=== PATIENT | female | born 1995 | race Caucasian/White ===

== ENCOUNTER 2018-02-20 09:29 | Emergency (ER) | payer OTHER ==
[2018-02-20 10:00] LABS: URINE BLOOD (Dip) POC 3+ (NEGATIVE); URINE GLUCOSE (Dip) POC Negative (NEGATIVE); URINE KETONES (Dip) POC 4+ (NEGATIVE); URINE LEUKOCYTE EST (Dip) POC 3+ (NEGATIVE); URINE NITRITE (Dip) POC Positive (NEGATIVE); URINE TOTAL PROTEIN POC 3+ (NEGATIVE)
[2018-02-20 10:00] LABS: URINE PH (Dip) POC 5.5 (5.0-8.5)
[2018-02-20] MEDS: PHENAZOPYRIDINE 100 MG TAB PO (10:34)
[2018-02-20] MEDS: CEPHALEXIN 500 MG CAP PO (10:34)
== END 2018-02-20 10:48 | disposition home or self-care (01) ==
LOC: FTE 09:29
DX: N30.00 Acute cystitis without hematuria (principal)
CPT/HCPCS: 81003; 81025; 87591; 99283